=== PATIENT | male | born 1990 | race Caucasian/White ===

== ENCOUNTER 2018-08-22 12:12 | Inpatient (IN) | payer BC, OTHER ==
[~2018-08-22] VITALS: Ht 177.8 cm; Wt 54.0 kg
--- NOTE | 2018-08-22 13:30 | NUR ---
Pre-admission Pre-admission assessment performed in the intake department of [facility]. Pt is A&O and ambulatory with a steady gait. He does not appear intoxicated and answers questions appropriately. Vital signs: B/P 108/75, HR 86, RR 18, O2 sat 99, T 98.2, pain 0/10. Pt reports that he has been using Xananx, IV Heroin, and IV Cyrstal Meth. Last used Xanax 2mg on 08/20, last used Heroin 08/21 at 1000, and last used Crystal Meth 08/21 at 1000. Pt is mildly withdrawing. He is observed to be restless and reports cold sweats. Pt is stable and admission is to continue on the [facility].
[2018-08-22 13:49] VITALS: BP 108/75
--- NOTE | 2018-08-22 13:49 | NUR ---
ADMISSION NOTE Patient is 27 year old male who arrived to [facility] on 08/12/18 at 1349 for medically supervised from Opioids(Heroin)/Benzo(Xanax). Patient is alert oriented x4 currently not experienced withdrawal with evidence of low COWS-4 and CIWA-3 score. Patient appears disheveled and unkempt. Patient has flat affect, depressed, and poor eye contact. Upon admission skin assessment done skin noted intact, no contraband found. Vital signs WNL.B/P-108/75, HR-86, RR-18, TEMP-98.2,SPO2-99%, Pain-1/10. Height-5'10, weight-119. upon arrival patient was able to provide UA for UDS. Patient is full code and following regular diet at home with not known food or drug allergies. Patient denies any PMH no seizure history. Patient reported he was having a thoughts of hurting himself two weeks ago but currently patient denies any SI/HI. Patient denies any 5150, blackouts, no cardiac complications, no overdose and delirium history. Patient verbalized father was alcoholic, and mother has thyroid problems. Patient refused FLU/PNA vaccine. Patient reported s/s of withdrawal as anxiety, restless legs, N/V D. Patient denies any hospitalizations in past 30 days. Patient did not bring any medications from home and denies any primary care physician or psychiatrist. TREATMENT HISTORY 1. [facility] help in [facility] 8 years ago and stayed 2 months there to detox from ETOH, Xanax and oxycodone. 2.[facility] in [facility] 3 years ago and stayed 1 year there to detox from heroin, crystal meth. SOBRIETY HISTORY Patient reported longest periods of sobriety is two and half years from July 2016 to 2017, and relapse 7 months ago in January 2018. SUBSTANCE USE HISTORY 1.Heroin- Patient states he first started using it at 13 year old and it become a problem at age of 18. Since January 2018 using daily 0.75mg IV and last used was 08/21/18 0.75mg IV at 1000. 2.Xanax- Patient states he first started using it at 13 year old and it become a problem at age 18. Since January 2018 using daily 2mg PO and last used was 08/20/18 2mg PO at 1200. 3.Crystal Meth- Patient states he first started using it at 13 years old and it become a problem at age 18. Since January 2018 daily 0.25gm IV and last used was 0.25gm 08/21/18 IV at 1000. MOTIVATION Patient reported " I am sick and tired of using it, I want to feel better, I don't care whatever it takes". Patient reports he would like to go to residential treatment after detox and is interested in attending AA meetings. Patient states his family is his support system. The consequences from using is "I am thinking too much about my future and I am not able to function well. Then I need something to take away all of my thoughts". Patient verbalized that he worked at [employer]. Whatever he earns he ends up using on drugs and sometimes does not even have money to pay rent. Patient verbalized he hates that feeling. Patient states "If i continue doing this, one day I am going to end up on the streets" He explains that he is seeking treatment today because he wants to live normal life and have good family life. Educated patient about plan of care including detox, group therapy, individual therapy and discharge planning. Patient was seen evaluated by MD. Patient is currently in his room resting in stable condition. All safety measures in place. Will cont with plan of care. Addendum: 08/22/18 at 1946 by NELLA ACEVEDO LVN correction-HEROIN 0.75GM
[2018-08-22 14:46] LABS: *AMPHETAMINE, URINE POSITIVE (NEGATIVE); *BARBITURATE, URINE NEGATIVE (NEGATIVE); *CANNABINOID, URINE NEGATIVE (NEGATIVE); *COCCAINE, URINE NEGATIVE (NEGATIVE); *OPIATE, URINE POSITIVE (NEGATIVE); *PHENCYCLIDINE SCREEN,URINE NEGATIVE (NEGATIVE)
[2018-08-22] MEDS ORDERED: ONDANSETRON 4 MG/2 ML VIAL IM PRN (15:15)
[2018-08-22] MEDS ORDERED: BUPRENORPHINE HCL 2 MG TAB.SUBL SL PRN (15:15)
[2018-08-22] MEDS ORDERED: MAG HYDROX/AL HYDROX/SIMETH 30 ML LIQUID UDC PO PRN (15:15)
[2018-08-22] MEDS ORDERED: DIAZEPAM 10 MG TABLET PO PRN ×2 (15:15)
[2018-08-22] MEDS ORDERED: MAGNESIUM HYDROXIDE 30 ML LIQUID UDC PO PRN (15:15)
[2018-08-22] MEDS ORDERED: LOPERAMIDE HCL 2 MG CAPSULE PO PRN (15:15)
[2018-08-22] MEDS ORDERED: ACETAMINOPHEN 325 MG TABLET PO PRN (15:15)
[2018-08-22] MEDS ORDERED: IBUPROFEN 600 MG TABLET PO PRN (15:15)
[2018-08-22] MEDS ORDERED: ONDANSETRON ODT 4 MG TAB.RAPDIS SL PRN (15:15)
[2018-08-22] MEDS ORDERED: LORAZEPAM 2 MG/1 ML VIAL IM PRN (15:15)
[2018-08-22] MEDS ORDERED: DICYCLOMINE HCL 20 MG TABLET PO PRN (15:15)
[2018-08-22] MEDS ORDERED: MIRALAX 17 GM POWD.PACK PO PRN (15:15)
[2018-08-22] MEDS ORDERED: DIAZEPAM 5 MG TABLET PO PRN (15:15)
[2018-08-22 16:00] VITALS: BP 137/83
--- NOTE | 2018-08-22 19:00 | NUR ---
END OF SHIFT NOTE Patient newly admitted for Opioids benzo(Xanax) withdrawal. Patient currently not on any taper PRN'S available for s/s of withdrawal. Skin intact warm and dry to touch. Patient denies any PMH. Vital signs WNL. Patient currently resting in his room comfortably. All safety measures in place. Will endorse care to night nurse.
--- NOTE | 2018-08-22 19:30 | NUR ---
Start of shift note Received report from day shift nurse. Patient is a 27 year old male newly admitted for Opiate and Benzodiazepine withdrawal. Patient was placed on 3 day Valium and 5 day Subutex taper starting tomorrow. Patient has PRN Valium and Subutex. Patient did not receive PRN medication. Last COWS 3 and CIWA 4. Patient alert and oriented x 4. Patient presents with flat affect, depressed mood, anxious, irritable and restless. Safety measures in place. Will continue to monitor.
[2018-08-22 20:00] VITALS: BP 116/66
--- NOTE | 2018-08-22 20:00 | NUR ---
COWS and CIWA assessment Patient reports increased anxiety, irritability and restlessness. Patent reports hot and cold sweats, chills , runny nose, diarrhea, restless legs , yawning and piloerection. COWS 19 and CIWA 19.
--- NOTE | 2018-08-22 20:08 | NUR ---
PRN Valium, Subutex SL, Imodium and Robaxin administration Patient reports increased anxiety, irritability and restlessness. Patent reports hot and cold sweats, chills , runny nose, diarrhea, restless legs, headache, muscle aches, yawning and piloerection. COWS 19 and CIWA 19.
[2018-08-22] MEDS: METHOCARBAMOL 750 MG TABLET PO PRN (20:09)
--- NOTE | 2018-08-22 20:38 | NUR ---
PRN Subutex re-assessment/CIWA assessment Patient states Subutex is working. It is helpful and effective. COWS 13 at this time.
[2018-08-22 21:06] LABS: BASOPHILS % (AUTO) 0.8 % (0.0-2.0); EOSINOPHILS # (AUTO) 0.2 K/uL (0.0-0.7); EOSINOPHILS % (AUTO) 4.1 % (0.0-7.0); HEMOGLOBIN 13.4 g/dL (12.5-16.3); LYMPHOCYTES # (AUTO) 1.2 K/uL (20.0-40.0); LYMPHOCYTES % (AUTO) 21.9 % (20.5-51.5); MEAN CORPUSCULAR HGB CONC 34 g/dL (32.5-36.3); MEAN CORPUSCULAR VOLUME 89.7 fL (73.0-96.2); MONOCYTES # (AUTO) 0.4 K/uL (2.0-10.0); MONOCYTES % (AUTO) 7.3 % (0.0-11.0); NEUTROPHILS # (AUTO) 3.7 K/uL (1.8-8.9); NEUTROPHILS % (AUTO) 65.9 % (38.5-71.5); PLATELET COUNT (AUTO) 221 K/uL (152-348); RED BLOOD CELL COUNT(AUTO) 4.46 MIL/uL (4.06-5.63); WHITE BLOOD COUNT (AUTO) 5.6 K/uL (3.6-10.2)
[2018-08-22 21:27] LABS: ALANINE AMINOTRANSFERASE 39 U/L (16-63); ALKALINE PHOSPHATASE 90 U/L (50-136); ASPARTATE AMINOTRANSFERASE 18 U/L (15-37); BILIRUBIN,TOTAL 0.3 mg/dL (0.2-1.0); CARBON DIOXIDE 26 mmol/L (21-32); CHLORIDE 107 mmol/L (98-107); CREATININE 0.8 mg/dL (0.6-1.3); GLUCOSE 110 mg/dL (74-106); MAGNESIUM 1.7 mg/dL (1.8-2.4); TOTAL PROTEIN, SERUM 6.9 g/dL (6.4-8.2); UREA NITROGEN, BLOOD 18 mg/dL (7-18)
[2018-08-22 21:33] LABS: THYROID STIMULATING HORMONE 0.295 mIU/mL (0.358-3.740)
--- NOTE | 2018-08-22 21:38 | NUR ---
PRN Robaxin, Valium and Imodium re-assessment Patient states Robaxin, Valium and Imodium are helpful and effective. He feels much. He is less anxious and pain is lessened. CIWA 13 at this time.
[2018-08-22 21:39] LABS: ETHANOL < 3 MG/DL (0-0)
[2018-08-22] MEDS ORDERED: MAGNESIUM OXIDE 400 MG TABLET PO ONE (22:00)
[2018-08-23] VITALS: BP 107/57
--- NOTE | 2018-08-23 | NUR ---
COWS and CIWA deferred Patient lying in bed with eyes closed. Respiration even and unlabored. Will continue to monitor
[2018-08-23 04:00] VITALS: BP 104/62
--- NOTE | 2018-08-23 04:00 | NUR ---
COWS and CIWA deferred Patient lying in bed with eyes closed. Respiration even and unlabored. Will continue to monitor
--- NOTE | 2018-08-23 07:31 | NUR ---
End of shift note Patient slept 8hours. Fluid intake of 1,000 ml. Voided x 2. No BM. Patient alert and oriented x 4. Patient was anxious, irritable and restless. Patient presented with hot and cold sweats, chills, yawning , diarrhea and restless legs. Patient's COWS 19 and CIWA 19 beginning of shift. PRN Valium , Robaxin, Subutex and Imodium, helpful and effective. Safety measures in place. Will continue to monitor. Last COWS 13 and CIWA 13.
--- NOTE | 2018-08-23 07:35 | NUR ---
Start Of Shift Report received from grease renderer nurse. Patient is a 27 year old male newly admitted for Opiate and Benzodiazepine withdrawal. Per grease renderer nurse pt's last CIWA was 13 and COWS was a 13. Pt continues his 3 day Valium and 5 Day Subutex tapers. Upon start of shift pt noted laying in his bed with his eyes closed resting, breathing even and unlabored. When greeted pt stated " Im feeling terrible can I please have my morning medications so I can feel better". Pt's room appears unorganized and messy, pt has water bottles and candy wraps around the room. Pt appears anxious, sweaty and flushed. During assessment, pt is AOx4. Lung sounds clear bilaterally. Radial pulse is regular and non-bounding. Abdomen soft and non-tender. Pt's skin is warm and intact. pt denies any pain at the moment. Encouraged pt to drink plenty of fluids to keep hydrated and help the detox process. Pt received PRN Valium, Subutex, Robaxin, and Imodium last night, per grease renderer nurse medications were effective. pt slept a total of 8 hours last night. Bed in lowest position. Side rails up x2. Call light functioning and within reach. All needs attended and met. Will continue to monitor.
[2018-08-23 08:00] VITALS: BP 116/65
[2018-08-23] MEDS ORDERED: 5 DAY TAPER BUPRENORPHINE -SERENITY PROTOCOL SL PRN (09:00)
[2018-08-23] MEDS ORDERED: TUBERCULIN,PURIF.PROT.DERIV. 5 TU/0.1 ML TEST ID ONE (09:00)
[2018-08-23] MEDS ORDERED: 3 DAY TAPER OF VALIUM-SERENITY PROTOCOL PO PRN (09:00)
[2018-08-23] MEDS: MULTIVITAMINS,THERAPEUTIC TABLET PO SCH (09:07)
[2018-08-23] MEDS: DIAZEPAM 5 MG TABLET PO SCH ×3 (09:07→21:00)
[2018-08-23] MEDS: BUPRENORPHINE HCL 2 MG TAB.SUBL SL SCH ×4 (09:08→21:00)
--- NOTE | 2018-08-23 09:39 | NUR ---
Therapist prompted client to attend group therapy.
[2018-08-23 12:00] VITALS: BP 123/78
[2018-08-23 15:18] LABS: THYROID STIMULATING HORMONE 0.253 mIU/mL (0.358-3.740)
[2018-08-23 16:00] VITALS: BP 114/74
--- NOTE | 2018-08-23 19:11 | NUR ---
End of Shift Report given to film processing shift supervisor nurse, Plan of care followed, Vital signs monitored closely Q4H. Withdrawals symptoms were closely monitored, medications given as schedule. Initial CIWA 13 COWS 13. Pt encouraged adequate PO fluid intake as tolerated to compensate for all the water lost in sweat as well as with helping speed up the detox process. Pt presented with diaphoresis, anxiety restless legs, yawning agitation, emotional volatility and restlessness during the day. Pt received all of the scheduled medications. Pt did not receive any PRN medications during the day. Last CIWA was a 11 COWS 11. Pt reported that Subutex and Valium have been working well at controlling the withdrawal symptoms. Pt ate all of the meals. Pt attended all the groups and activities to learn new coping skills to prevent relapse. Pt denies any SI/HI. All safety measures in place, bed in lowest locked position, call light within reach. All needs met and attended.
--- NOTE | 2018-08-23 19:12 | NUR ---
Start of shift note Received report from day shift nurse. Pt is a 27 yo male, A+Ox4, presenting to [facility] for medically supervised Benzo/Opiate withdrawal. Pt was also using Methamphetamines. Pt noted with restlessness, agitation, and anxiety. Pt has no HX to report. Pt is on 3 day Valium and 5 day Subutex tapers, tolerated well. Respirations even and unlabored. Will continue to monitor.
[2018-08-23 20:11] VITALS: BP 110/68
--- NOTE | 2018-08-23 20:11 | NUR ---
COWS and CIWA Assessment COWS: 9 and CIWA: 8. Pt noted with pulse 82, chills, restlessness, enlarged pupils, mild diffuse discomfort, stuffy nose, fine tremors, yawning, anxiety, and agitation. Respirations even and unlabored. Will continue to monitor.
--- NOTE | 2018-08-24 00:56 | NUR ---
V/S refused and COWS and CIWA Assessment deferred for sleep. Respirations even and unlabored. Will continue to monitor.
--- NOTE | 2018-08-24 04:56 | NUR ---
V/S refused and COWS and CIWA Assessment deferred for sleep. Respirations even and unlabored. Will continue to monitor.
--- NOTE | 2018-08-24 07:00 | NUR ---
End of shift note Pt was continuously noted with restlessness, anxiety, and agitation. Pt remained in room for entire shift. Pt remained compliant and cooperative with all aspects of treatment. Pt was not given any PRN medications during shift. Pt continues on 3 day Valium and 5 day Subutex tapers, tolerated well. Pt slept for a total of 9 HRS. Last COWS: 9 and Last CIWA: 8. Respirations even and unlabored. Will endorse to day shift nurse.
--- NOTE | 2018-08-24 07:20 | NUR ---
Start of Shift Note Pt. is a 27 y/o male admitted for the medically managed withdrawal from opiates. Endorse from previous shift pt. presented with anxiety, restlessness and agitation. Received pt. in room. Pt. in bed with eyes closed, and no signs of distress noted. Safety measures in place. Will continue to monitor pt.s behavior for safety.
[2018-08-24 08:00] VITALS: BP 103/55
--- NOTE | 2018-08-24 08:00 | NUR ---
COWS/CIWA Assessment COWS of 8. CIWA 8. Pt. in bed presenting with fatigue, anxiety, agitation and restlessness. Will give medications as ordered. Will continue to monitor pt.'s behavior for safety and medication effectivenes
[2018-08-24] MEDS: BUPRENORPHINE HCL 2 MG TAB.SUBL SL SCH ×3 (08:55→20:39)
[2018-08-24] MEDS: DIAZEPAM 5 MG TABLET PO SCH ×2 (08:55→20:39)
[2018-08-24] MEDS: MULTIVITAMINS,THERAPEUTIC TABLET PO SCH (08:55)
[2018-08-24 11:15] LABS: HEPATITIS B SURFACE AG Negative (Negative)
[2018-08-24 12:00] VITALS: BP 106/57
--- NOTE | 2018-08-24 12:00 | NUR ---
COWS/CIWA Assessment COWS of 8. CIWA 8. Pt. in bed presenting with fatigue, anxiety, agitation and restlessness. Pt. compliant with medication regiment and treatment plan. Will continue to monitor pt.'s behavior for safety and medication effectivenes
[2018-08-24 16:00] VITALS: BP 121/61
--- NOTE | 2018-08-24 16:00 | NUR ---
COWS/CIWA Assessment COWS of 7. CIWA 7. Pt. in bed presenting with fatigue, anxiety, agitation and restlessness. Pt. compliant with medication regiment and treatment plan. Will continue to monitor pt.'s behavior for safety and medication effectiveness
--- NOTE | 2018-08-24 19:09 | NUR ---
End of Shift Note Pt. is a 27 y/o male admitted for the medically managed withdrawal from opiates. Throughout out shift pt. presented with fatigue and anxiety. Pt. remained in his room, coming out only for needs. Pt. remains compliant with treatment plan and medication regiment. Safety measures in place. Will endorse pt.s care to oncoming shift.
--- NOTE | 2018-08-24 19:21 | NUR ---
Start of shift note Received report from day shift nurse. Pt is a 27 yo male, A+Ox4, presenting to [facility] for medically supervised Benzo/Opiate withdrawal. Pt was also using Methamphetamines. Pt noted with fatigue, anxiety, and agitation. Pt has no medical HX to report. Pt is on 3 day Valium and 5 day Subutex tapers, tolerated well. Respirations even and unlabored. Will continue to monitor.
[2018-08-24 20:11] VITALS: BP 121/65
--- NOTE | 2018-08-24 20:11 | NUR ---
COWS and CIWA Assessment COWS: 9 and CIWA: 9. Pt noted with pulse 112, flushed face, restlessness, enlarged pupils, mild diffuse discomfort, fine tremors, anxiety, agitation, and sweat on brow. Respirations even and unlabored. Will continue to monitor.
--- NOTE | 2018-08-25 00:57 | NUR ---
V/S refused and COWS and CIWA Assessment deferred for sleep. Respirations even and unlabored. Will continue to monitor.
--- NOTE | 2018-08-25 04:52 | NUR ---
V/S refused and COWS and CIWA Assessment deferred for sleep. Respirations even and unlabored. Will continue to monitor.
--- NOTE | 2018-08-25 07:00 | NUR ---
End of shift note Pt was continuously noted with fatigue, agitation, and anxiety. Pt remained in room for majority of shift except to go smoke on smoking patio and to get food from kitchen. Pt remained compliant and cooperative with all aspects of treatment. Pt was not given any PRN medications during shift. Pt remains on 3 day Valium and 5 day Subutex tapers, tolerated well. Pt slept for a total of 10 HRS. Last COWS: 9 and Last CIWA: 9 @2010. Respirations even and unlabored. Will endorse to day shift nurse.
--- NOTE | 2018-08-25 07:39 | NUR ---
BEGINNING OF SHIFT Patient endorsement report received from dynamite cartridge crimper nurse, all pertinent information was discussed. Patient received awake, alert and oriented x4, educated regarding plan of care for the day and medication regimen with good verbal understanding. Patient with admitting dx: opiate/bzo withdrawal. Ongoing 3 day valium and 5 day subutex taper as ordered. Per dynamite cartridge crimper patient with last COW score of: 9, and last CIWA score of: 9. Received no PRNs during dynamite cartridge crimper. Patient slept for 10 hours. Safety measures are in place. call light kept with in reach, will continue to monitor.
[2018-08-25 08:39] VITALS: BP 105/60
[2018-08-25] MEDS: MULTIVITAMINS,THERAPEUTIC TABLET PO SCH (08:42)
[2018-08-25] MEDS ORDERED: BUPRENORPHINE HCL 2 MG TAB.SUBL SL SCH (09:00)
[2018-08-25] MEDS ORDERED: DIAZEPAM 5 MG TABLET PO SCH (09:00)
--- NOTE | 2018-08-25 09:00 | NUR ---
COW/CIWA ASSESSMENT Patient was noted exhibiting the following s/sx of withdrawal during shift: Elevated heart rate, c/o chills, difficultly sitting still, enlarged pupils, nasal congestion, moist eyes, tremors that can be felt but not seen, anxiety and agitation, and generalized discomfort, patient with current COW score of: 8, and current CIWA score of: 9.
--- NOTE | 2018-08-25 13:26 | NUR ---
COW/CIWA ASSESSMENT continues to exhibit the following s/sx of withdrawal during shift: Elevated heart rate, c/o chills, difficultly sitting still, enlarged pupils, nasal congestion, moist eyes, tremors that can be felt but not seen, anxiety and agitation, and generalized discomfort, patient with current COW score of: 8, and current CIWA score of: 9.
[2018-08-25 13:53] VITALS: BP 118/64
[2018-08-25] MEDS: BUPRENORPHINE HCL 2 MG TAB.SUBL SL SCH ×2 (14:20→20:20)
--- NOTE | 2018-08-25 14:51 | NUR ---
Therapist prompted client to attend group therapy.
[2018-08-25 16:55] VITALS: BP 136/81
--- NOTE | 2018-08-25 17:00 | NUR ---
COW/CIWA ASSESSMENT Still noted presenting with: elevated heart rate, c/o chills, difficultly sitting still, enlarged pupils, nasal congestion, moist eyes, tremors that can be felt but not seen, anxiety and agitation, and generalized discomfort, patient with current COW score of: 8, and current CIWA score of: 9. Will continue to monitor.
--- NOTE | 2018-08-25 18:58 | NUR ---
END OF SHIFT Patient continues under close observation, ongoing Subutex and Valium taper as ordered. patient received last dose of Valium taper this morning, continues on Subutex as ordered. Patient was noted exhibiting the following s/sx of withdrawal during shift: Elevated heart rate, c/o chills, difficultly sitting still, enlarged pupils, nasal congestion, moist eyes, tremors that can be felt but not seen, anxiety and agitation, and generalized discomfort, patient with last COW score of: 8, and last CIWA score of: 9. Patient noted isolative at times, encouraged to attend group therapies/sessions to learn new coping skills to prevent relapse. Patient noted with poor eye contact and anxious mood. Encouraged to develop coping skills and utilization of non pharmacological interventions. Received no PRN medications during shift. Patient continues under close observation, will continue to monitor, endorsed to retail shift supervisor nurse, all pertinent information was discussed.
--- NOTE | 2018-08-25 19:39 | NUR ---
START OF SHIFT NOTE Rcvd report from outgoing nurse. Pt is a 27 y/o male A/O to person, place, time, and purpose. Pt was admitted for medically supervised withdrawal from Benzodiazepines and Opiates. Pt completed a 3 day Valium taoer and is on day 3 of a 5 day Subutex taper. Pt has been presenting w/ anxiety, depressed and withdrawn mood, isolative, flat affect, sweats, and chills. Pt rcvd no PRN medications during previous shift. Last CIWA 9 and COWS 8 @ 1600. Call light is within reach. Pt will continue to be monitored and needs met.
--- NOTE | 2018-08-25 20:03 | NUR ---
CIWA ADN COWS ASSESSMENT CIWA 9 and COWS 8. . Pt has been presenting w/ anxiety, depressed and withdrawn mood, isolative, flat affect, sweats, and chills. V/S: T:98.2, P:95, RR:12, SPO2:98, BP:114/64.
[2018-08-25 20:08] VITALS: BP 114/64
[2018-08-25] MEDS: diphenhydrAMINE 50 MG CAPSULE PO PRN (20:19)
[2018-08-25] MEDS: CLONIDINE HCL 0.1 MG TABLET PO PRN (20:20)
--- NOTE | 2018-08-25 20:20 | NUR ---
PRN BENADRYL AND CLONIDINE ADMINISTRATION Benadryl 50mg for sleep and Clonidine 0.1mg given for anxiety. Will reassess pt in 1 hr.
--- NOTE | 2018-08-25 21:20 | NUR ---
PRN BENADRYL AND CLONIDINE REASSESSMENT Pt is in bed / his eyes closed. Pt's respirations are unlabored and even.
--- NOTE | 2018-08-26 00:07 | NUR ---
CIWA AND COWS DEFERRED Pt is in bed w/ his eyes closed. Pt's respirations are unlabored and maribel.
--- NOTE | 2018-08-26 04:02 | NUR ---
CIWA AND COWS DEFERRED Pt is in bed w/ his eyes closed. Pt's respirations are unlabored and even.
--- NOTE | 2018-08-26 07:12 | NUR ---
END OF SHIFT NOTE Endorsed pt to oncoming nurse. Pt is a 27 y/o male A/O to person, place, time, and purpose. Pt was admitted for medically supervised withdrawal from Benzodiazepines and Opiates. Pt completed a 3 day Valium taper and day 3 of a 5 day Subutex taper. Pt continued presenting w/ anxiety, depressed and withdrawn mood, isolative, flat affect, sweats, and chills. Pt is very isolative staying in his room. Pt denies any S/I or H/I. PRN Benadryl and Clonidine were given and noted effective. Pts fluid intake was 855ml and he slept for 6hrs. Last CIWA 9 and COWS 8 @ 1999. Call light is within reach.
--- NOTE | 2018-08-26 07:50 | NUR ---
BEGINNING OF SHIFT Patient received awake, alert and oriented x4, educated regarding plan of care for the day and medication regimen with good verbal understanding. Patient endorsement report received from shift mechanic nurse, all pertinent information was discussed. Continues with Ongoing 3 day Valium and 5 day Subutex taper as ordered, on day 3 of taper. Per shift mechanic patient with last COW score of: 8, and last CIWA score of: 9. Received PRN: Benadryl and clonidine during shift mechanic. Patient slept for 8 hours. Safety measures are in place. call light kept with in reach, will continue to monitor.
[2018-08-26 08:48] VITALS: BP 103/65
[2018-08-26] MEDS: MULTIVITAMINS,THERAPEUTIC TABLET PO SCH (08:49)
[2018-08-26] MEDS: BUPRENORPHINE HCL 2 MG TAB.SUBL SL SCH ×3 (08:49→21:48)
--- NOTE | 2018-08-26 09:10 | NUR ---
COW/CIWA ASSESSMENT Patient was noted exhibiting the following s/sx of withdrawal: c/o chills, difficultly sitting still, enlarged pupils, moist eyes, tremors that can be felt but not seen, anxiety and agitation, and generalized discomfort, patient with current COW score of: 7, CIWA: 8.
--- NOTE | 2018-08-26 13:10 | NUR ---
COW/CIWA ASSESSMENT Patient was noted exhibiting the following s/sx of withdrawal: elevated heart rate, c/o chills, difficultly sitting still, enlarged pupils, moist eyes, tremors that can be felt but not seen, anxiety and agitation, and generalized discomfort, patient with current COW score of: 8, CIWA: 8.
[2018-08-26 13:34] VITALS: BP 112/66
--- NOTE | 2018-08-26 16:58 | NUR ---
COW/CIWA ASSESSMENT Continues to exhibit the following s/sx of withdrawal: elevated heart rate, c/o chills, difficultly sitting still, enlarged pupils, moist eyes, tremors that can be felt but not seen, anxiety and agitation, and generalized discomfort, patient with current COW score of: 8, CIWA: 8.
[2018-08-26 17:00] VITALS: BP 128/84
--- NOTE | 2018-08-26 19:03 | NUR ---
END OF SHIFT Patient alert and oriented x4, continues under close observation, ongoing Subutex taper as ordered. Completed Valium taper as ordered. Patient noted isolative at times, encouraged to attend group therapies/sessions to learn new coping skills to prevent relapse. Patient noted with poor eye contact and anxious mood. Encouraged to develop coping skills and utilization of non pharmacological interventions. Patient was noted exhibiting the following s/sx of withdrawal during shift: c/o chills, elevated heart rate, difficultly sitting still, enlarged pupils, moist eyes, tremors that can be felt but not seen, anxiety and agitation, and generalized discomfort, patient with last COW score of: 8, and last CIWA score of: 8. Received no PRN medications during shift. Patient continues under close observation, will continue to monitor, endorsed to mini shifter nurse, all pertinent information was discussed.
--- NOTE | 2018-08-26 19:31 | NUR ---
START OF SHIFT NOTE Rcvd report from outgoing nurse. Pt is a 27 y/o male A/O to person, place, time, and purpose. Pt was admitted for medically supervised withdrawal from Benzodiazepines and Opiates. Pt has completed a 3 day Valium taper and is on day 4 of a 5 day Subutex taper. Pt has been presenting w/ anxiety, depressed and withdrawn mood, flat affect, sweats, chills, and restless legs. Pt spent the majority of his day in his room despite being encouraged to go to group by nurses and staff. Pt rcvd no PRN medications during previous shift. Last CIWA 8 and COWS 8 @ 1600. Call light is within reach. Pt will continue to be monitored and needs met.
[2018-08-26] MEDS: CLONIDINE HCL 0.1 MG TABLET PO PRN (19:46)
--- NOTE | 2018-08-26 19:46 | NUR ---
PRN CLONIDINE ADMINISTRATION Clonidine 0.1mg given for anxiety. Will reassess pt in 1hr.
[2018-08-26 20:03] VITALS: BP 123/71
--- NOTE | 2018-08-26 20:03 | NUR ---
CIWA AND COWS ASSESSMENT CIWA 8 and COWS 8. Pt has been presenting w/ anxiety, depressed and withdrawn mood, flat affect, sweats, chills, and restless legs. V/S: T:98.7, P:84, RR:16, SPO2:100, BP:123/71
--- NOTE | 2018-08-26 20:46 | NUR ---
PRN CLONIDINE REASSESSMENT Pt states relief from anxiety. Pt is sitting in bed and wants to smoke. Pt appears calm and relaxed. Will continue to monitor.
[2018-08-26] MEDS: diphenhydrAMINE 50 MG CAPSULE PO PRN (21:48)
[2018-08-26] MEDS: HYDROXYZINE PAMOATE 25 MG CAPSULE PO PRN (21:48)
--- NOTE | 2018-08-26 21:48 | NUR ---
PRN BENADRYL AND VISTARIL ADMINISTRATION Benadryl 50mg for sleep and Vistaril 50mg for anxiety given. Will reassess pt in 1 hr.
--- NOTE | 2018-08-26 22:48 | NUR ---
PRN CLONIDINE AND BENADRYL REASSESSMENT Pt is in bed w/ his eyes closed. Pt's respirations are unlabored and even.
--- NOTE | 2018-08-27 00:05 | NUR ---
CIWA AND COWS DEFERRED Pt is in bed w/ his eyes closed. Pt's respirations are unlabored and even.
--- NOTE | 2018-08-27 04:05 | NUR ---
CIWA AND COWS DEFERRED Pt is in bed w/ his eyes closed. Pt's respirations are unlabored and even.
--- NOTE | 2018-08-27 07:06 | NUR ---
END OF SHIFT NOTE Endorsed pt to oncoming nurse. Pt is a 27 y/o male A/O to person, place, time, and purpose. Pt was admitted for medically supervised withdrawal from Benzodiazepines and Opiates. Pt has completed a 3 day Valium taper and completed day 4 of a 5 day Subutex taper. Pt continued presenting w/ anxiety, depressed and withdrawn mood, flat affect, sweats, chills, and restless legs. Pt spent the majority of the night in his room. Pt denies any S/I or H/I. PRN Clonidine, Vistaril, and Benadryl were given and noted effective. Pts fluid intake was 1720ml and he slept for 9hrs. Last CIWA 8 and COWS 8 @ 1999. Call light is within reach.
--- NOTE | 2018-08-27 07:30 | NUR ---
Start of shift Pt is 27 y/o male admitted for medically supervised withdrawal of Opiates, Benzos and he reports using meth. Pt is on 5 day Subutex taper, today is day 5. He completed 3 day Valium taper. Last COWS 8, CIWA 8 at 1999. Pt slept 9 hours last night. Pt c/o fatigue, anxiety, restlessness, fine tremors. He is isolative and depressed mood, flat affect, and anhedonia. Pt is disheveled and unshaven, room cluttered with wrapper and empty bottles. Encouraged pt to participate in group therapy sessions today to identify positive coping skills to maintain sobriety. All safety measures in place, bed locked/low position. Pt Full Code NKA. Will continue to monitor for withdrawal symptoms.
--- NOTE | 2018-08-27 08:15 | NUR ---
COWS 8, CIWA 7- Pt c/o moderate anxiety, fine tremors, restless legs, and fatigue. He has fat affect, anhedonia and depressed mood.
[2018-08-27 08:49] VITALS: BP 126/59
[2018-08-27] MEDS: CLONIDINE HCL 0.1 MG TABLET PO PRN (08:55)
[2018-08-27] MEDS: MULTIVITAMINS,THERAPEUTIC TABLET PO SCH (08:55)
--- NOTE | 2018-08-27 08:57 | NUR ---
PRN Clonidine 0.1 mg PO for moderate anxiety
[2018-08-27] MEDS ORDERED: BUPRENORPHINE HCL 2 MG TAB.SUBL SL SCH (09:00)
--- NOTE | 2018-08-27 10:00 | NUR ---
Reassess Clonidine- Pt reports anxiety improved. Pt remains isolative.
[2018-08-27 12:00] VITALS: BP 118/64
[2018-08-27] MEDS ORDERED: DIPH50CA37 PO (12:05)
[2018-08-27] MEDS ORDERED: HYDR-3895 PO (12:05)
[2018-08-27] MEDS ORDERED: CLON0.1T14 PO (12:05)
[2018-08-27] MEDS ORDERED: METH-406 PO (12:05)
--- NOTE | 2018-08-27 12:10 | NUR ---
COWS 8, CIWA 7- Pt c/o moderate anxiety, fine tremors, restless legs, and fatigue. Taper completed this morning. Pt for possible discharge tomorrow.
[2018-08-27 16:05] VITALS: BP 109/63
--- NOTE | 2018-08-27 16:15 | NUR ---
COWS 7, CIWA 6- Pt c/o moderate anxiety, fine tremors, restless legs, and fatigue. Taper completed this morning.
--- NOTE | 2018-08-27 18:28 | NUR ---
End of shift Pt is 27 y/o male admitted for medically supervised withdrawal of Opiates, Benzos and he reports using meth. Pt completed 5 day Subutex taper and 3 day Valium taper. Last COWS 7, CIWA 6 at 1600. PRN given; Clonidine. Pt c/o fatigue, anxiety, restlessness, fine tremors. He is isolative and depressed mood, flat affect, and anhedonia. Pt is disheveled and unshaven, room cluttered with wrapper and empty bottles. Encouraged pt to participate in group therapy sessions today to identify positive coping skills to maintain sobriety. PO fluids 900 ml, voids x 2, no BM. All safety measures in place, bed locked/low position. Pt Full Code NKA. Will continue to monitor for withdrawal symptoms.
--- NOTE | 2018-08-27 19:30 | NUR ---
START OF SHIFT Pt is 27 y/o male admitted for withdrawal of Opiates and Benzos.Mickie nolasco has completed 5 day Subutex taper and 3 day Valium taper,and is scheduled for discharge tomorrow morning. Last COWS 7, CIWA 6 at 1600. PRN Clonidine was given per day shift and was noted to be effective. Per report,Pt has been isolative and withdrawn,stayed in room most of time,did not attend any groups. Pt received in bed, disheveled and unkempt,c/o feeling tired, unmotivated to get out of bed. PO fluid encouraged as tolerated .All safety measures in place, call light is within reach. Will continue to monitor for safety.
[2018-08-27 20:00] VITALS: BP 105/54
[2018-08-27] MEDS: diphenhydrAMINE 50 MG CAPSULE PO PRN (21:18)
[2018-08-27] MEDS: HYDROXYZINE PAMOATE 25 MG CAPSULE PO PRN (21:19)
--- NOTE | 2018-08-27 21:19 | NUR ---
PRN VISTARIL AND BENADRYL GIVEN ORDERED FOR C/O ANXIETY AND INSOMNIA RESPECTIVELY.WILL MONITOR FOR EFFECTIVENESS.
[2018-08-27] MEDS: LOPERAMIDE HCL 2 MG CAPSULE PO PRN (21:25)
--- NOTE | 2018-08-27 21:25 | NUR ---
PRN IMODIUM 2 MG PO GIVEN FOR C/O DIARRHEA.WILL MONITOR.
--- NOTE | 2018-08-27 22:25 | NUR ---
PRN REASSESSMENT Pt is calm and resting in bed with eyes closed,breathing is even and non labored,no s/s of distress noted,will continue to monitor.
--- NOTE | 2018-08-28 | NUR ---
COWS/CIWA DEFERRED Pt is calm and resting in bed with eyes closed,breathing is even and non labored,no s/s of distress noted,v/s refused,will continue to monitor.
--- NOTE | 2018-08-28 04:00 | NUR ---
COWS/CIWA DEFERRED Pt is calm and resting in bed with eyes closed,breathing is even and non labored,no s/s of distress noted,v/s refused,will continue to monitor.
--- NOTE | 2018-08-28 07:24 | NUR ---
END OF SHIFT Pt is 27 y/o male admitted for withdrawal of Opiates and Benzos.Mikcie nolasco has completed his Subutex taper and Valium taper,and is scheduled for discharge this morning. Last COWS 6, CIWA 6 at 1999. PRN Vistaril,Benadryl and Imodium were given and were noted to be effective.Pt has been isolative and withdrawn,stayed in room most of time, slept 9 hours,fluid intake was 1246 ml, voided x 3; b/m x 1 . PO fluid encouraged as tolerated .All safety measures in place, call light is within reach. Will continue to monitor for safety.
[2018-08-28 08:03] VITALS: BP 118/74
--- NOTE | 2018-08-28 08:05 | NUR ---
START OF SHIFT: Received Pt A/O X 4. He reports anxiety,body aches and restlessness. He states he feels nervous about leaving this morning because he still feels s/s of w/d. Offered reassurance and support. PRN Vistaril,Robaxin and Clonidine given to manage s/s of w/d. COWS 7 CIWA 7.Encouraged hot shower to soothe muscle aches and increased fluid intake. Will continue with discharge process.
[2018-08-28 08:26] VITALS: BP 118/74
[2018-08-28] MEDS: CLONIDINE HCL 0.1 MG TABLET PO PRN (08:26)
[2018-08-28] MEDS: HYDROXYZINE PAMOATE 25 MG CAPSULE PO PRN (08:26)
[2018-08-28] MEDS: METHOCARBAMOL 750 MG TABLET PO PRN (08:26)
[2018-08-28] MEDS: MULTIVITAMINS,THERAPEUTIC TABLET PO SCH (08:27)
[2018-08-28] MEDS: LOPERAMIDE HCL 2 MG CAPSULE PO PRN (08:52)
--- NOTE | 2018-08-28 09:56 | NUR ---
DISCHARGE: Pt is A/O X 4. He denies S/I and H/I. Belongings returned. Educated him on discharge instructions and medications. He expressed verbal understanding of education. CLINICAL [employer]ANSPLANT COORDINATOR escorted Pt to [facility] where he was transported by [facility] to [facility] at [id number].
== END 2018-08-28 09:54 | disposition other institution (70) | DRG 895 ==
LOC: SRC 13:11
PROVIDERS: ADMIT Family Medicine Addiction Medicine; ATTEND Family Medicine Addiction Medicine
PROC: HZ2ZZZZ Detoxification Services for Substance Abuse Treatment (ICD-10-PCS; principal; 2018-08-22)
PROC: HZ31ZZZ Individual Counseling for Substance Abuse Treatment, Behavioral (ICD-10-PCS; 2018-08-23)
PROC: HZ41ZZZ Group Counseling for Substance Abuse Treatment, Behavioral (ICD-10-PCS; 2018-08-25)
DX: F11.23 Opioid dependence with withdrawal (principal); F15.20 Other stimulant dependence, uncomplicated; F17.210 Nicotine dependence, cigarettes, uncomplicated; Z59.0 Homelessness; Z91.89 Other specified personal risk factors, not elsewhere classified; E83.42 Hypomagnesemia; F41.9 Anxiety disorder, unspecified; F13.230 Sedative, hypnotic or anxiolytic dependence with withdrawal, uncomplicated; R94.6 Abnormal results of thyroid function studies; F32.9 Major depressive disorder, single episode, unspecified
CPT/HCPCS: 36415; 70030-TC; 80307; 80324; 80361; 83735; 84443; 85025; 86592; 86705; 86803; 87340; 87806; G0480; Q0163